=== PATIENT | female | born 1970 | race Caucasian/White ===

== ENCOUNTER 2024-06-17 08:06 | Outpatient (CLI) | payer BC | END 2024-06-17 08:07 | disposition home or self-care (01) | LOC: SCSRAD 08:06 | PROVIDERS: ATTEND Orthopaedic Surgery | DX: M54.2 Cervicalgia (principal); M47.812 Spondylosis without myelopathy or radiculopathy, cervical region; Z98.890 Other specified postprocedural states | CPT/HCPCS: 72040 ==